=== PATIENT | male | born 1950 | race Caucasian/White ===

== ENCOUNTER 2020-09-17 08:23 | Observation (INO) ==
[2020-09-17] MEDS ORDERED: NS 0.9% 1000 ml BAG 1,000 ML IV ONE ×2 (08:24→08:35)
[2020-09-17 08:49] LABS: Hematocrit 31 % (42-52); Hemoglobin 10.7 g/dL (14.0-18.0); Mean Corpuscular HGB Conc 34 g/dL (31-36); Mean Corpuscular Hemoglobin 33 pg (27-31); Mean Corpuscular Volume 96 fL (80-94); Mean Platelet Volume 8.2 fL (7.4-10.4); Platelet Count 290 10^3/uL (150-450); Red Blood Count 3.25 10^6 /uL (4.18-5.48); Red Cell Distribution Width 17 % (10-15); White Blood Count 3.5 10^3/uL (3.5-10.8)
[2020-09-17] MEDS ORDERED: Ondansetron 4 mg VIAL 2 MG/ML 2 ml VIAL IV ONE (08:58)
[2020-09-17 09:08] LABS: Albumin 3.8 g/dL (3.2-5.2); Albumin/Globulin Ratio 1.4 (1-3); BUN/Creatinine Ratio 30.5 (8-20); Calcium 9.5 mg/dL (8.6-10.3); EGFR African American 113.1 (>60); EGFR Non-African American 93.4 (>60); Globulin 2.8 g/dL (2-4); Magnesium 1.8 mg/dL (1.9-2.7); Potassium 3.8 mmol/L (3.5-5.0); Total Bilirubin 1.5 mg/dL (0.2-1.0); Total Protein 6.6 g/dL (6.4-8.9)
[2020-09-17 09:10] LABS: Troponin I 0.01 ng/mL (<0.03)
[2020-09-17] MEDS ORDERED: Magnesium Sulfate IV 1GM/100ML 1 GM/100 ML BAG IV ONE (09:16)
[2020-09-17 09:27] LABS: ABS Lymphocytes 0.4 10^3/ul (1.0-4.8); ABS Monocytes 0.9 10^3/ul (0-0.8); ABS Neutrophils 2.2 10^3/ul (1.5-7.7); Eosinophil % 0.3 %; Lymphocyte % 11.9 %; Nucleated Red Blood Cells % 0.6
[2020-09-17 09:42] LABS: TSH Ultra Thyroid Stim Horm 0.82 mcIU/mL (0.34-5.60)
[2020-09-17] MEDS ORDERED: Ondansetron 4 mg VIAL 2 MG/ML 2 ml VIAL IV PRN (10:40)
[2020-09-17] MEDS ORDERED: Ondansetron ODT 4 mg TAB 4 MG TAB PO PRN (10:46)
[2020-09-17] MEDS: Enoxaparin 40 MG/0.4 ML SYR SUBCUT SCH (12:01)
[2020-09-17] MEDS: Aspirin EC 81 mg TAB.EC (enteric coated) PO SCH (12:01)
[2020-09-17] MEDS: NS 0.9% 1000 ml BAG 1,000 ML IV SCH ×2 (14:11→21:00)
[2020-09-18] MEDS: NS 0.9% 1000 ml BAG 1,000 ML IV SCH ×3 (03:18→20:03)
[2020-09-18 06:08] LABS: Hematocrit 20 % (42-52); Hemoglobin 7.1 g/dL (14.0-18.0); Mean Corpuscular HGB Conc 35 g/dL (31-36); Mean Corpuscular Hemoglobin 34 pg (27-31); Mean Corpuscular Volume 95 fL (80-94); Mean Platelet Volume 7.6 fL (7.4-10.4); Platelet Count 147 10^3/uL (150-450); Red Blood Count 2.12 10^6 /uL (4.18-5.48); Red Cell Distribution Width 17 % (10-15); White Blood Count 1.3 10^3/uL (3.5-10.8)
[2020-09-18 06:27] LABS: BUN/Creatinine Ratio 30.8 (8-20); Calcium 7.7 mg/dL (8.6-10.3); EGFR African American 191.2 (>60); Potassium 3.6 mmol/L (3.5-5.0)
[2020-09-18] MEDS: Enoxaparin 40 MG/0.4 ML SYR SUBCUT SCH (09:34)
[2020-09-18] MEDS: Aspirin EC 81 mg TAB.EC (enteric coated) PO SCH (09:34)
[2020-09-18 09:37] LABS: Polychromasia 2+
[2020-09-18 09:38] LABS: Spherocytes 2+
[2020-09-18 09:39] LABS: ABS Lymphocytes 0.2 10^3/ul (1.0-4.8); ABS Monocytes 0.3 10^3/ul (0-0.8); Eosinophil % 0.5 %; Nucleated Red Blood Cells % 0.1
[2020-09-18 09:41] LABS: ABS Neutrophils 0.7 10^3/ul (1.5-7.7)
[2020-09-18 10:04] LABS: Hematocrit 22 % (42-52); Hemoglobin 7.6 g/dL (14.0-18.0); Mean Corpuscular HGB Conc 35 g/dL (31-36); Mean Corpuscular Hemoglobin 34 pg (27-31); Mean Corpuscular Volume 96 fL (80-94); Mean Platelet Volume 7.7 fL (7.4-10.4); Platelet Count 161 10^3/uL (150-450); Red Blood Count 2.24 10^6 /uL (4.18-5.48); Red Cell Distribution Width 17 % (10-15); White Blood Count 1.6 10^3/uL (3.5-10.8)
[2020-09-18 12:12] LABS: ABS Lymphocytes 0.2 10^3/ul (1.0-4.8); ABS Monocytes 0.4 10^3/ul (0-0.8); Eosinophil % 0.3 %; Lymphocyte % 11.7 %; Nucleated Red Blood Cells % 0.4
[2020-09-18 12:51] LABS: Urine Appearance Clear; Urine Bilirubin Negative (Negative); Urine Blood 1+ (Negative); Urine Color Yellow; Urine Glucose Negative (Negative); Urine Ketones 2+ (Negative); Urine Nitrite Negative (Negative); Urine Protein Negative (Negative); Urine Urobilinogen Positive (Negative)
[2020-09-18 13:06] LABS: Urine Bacteria Absent (Absent); Urine Red Blood Cell Trace(0-2/hpf) (Absent); Urine Squamous Epithelial Cell Present (Absent); Urine White Blood Cell Trace(0-5/hpf) (Absent)
[2020-09-19] MEDS: NS 0.9% 1000 ml BAG 1,000 ML IV SCH (04:04)
[2020-09-19] MEDS: Aspirin EC 81 mg TAB.EC (enteric coated) PO SCH (07:43)
[2020-09-19 08:08] VITALS: BP 121/63
== END 2020-09-19 11:35 | disposition home or self-care (01) ==
LOC: MED 08:23 → ED 08:23 → MED 13:19
PROVIDERS: ADMIT Internal Medicine Hematology & Oncology; ATTEND Internal Medicine Hematology & Oncology

== ENCOUNTER 2024-05-30 12:27 | Observation (INO) ==
[2024-05-30] MEDS: Lactated Ringers 1000 ml BAG 1,000 ML IV ONE (13:43)
[2024-05-30 13:52] LABS: ABS Basophils 0.1 10^3/uL (0.0-0.1); ABS Lymphocytes 0.6 10^3/uL (1.0-4.8); ABS Monocytes 0.3 10^3/uL (0.0-1.1); ABS Neutrophils 6.7 10^3/uL (1.5-7.6); Eosinophil % 0.4 %; Hematocrit 29.3 % (38-53); Hemoglobin 10.2 g/dL (13.2-16.3); Lymphocyte % 7.6 %; Mean Corpuscular Hemoglobin 31.8 pg (27-33); Mean Corpuscular Hgb Conc 34.7 g/dL (31-36); Mean Corpuscular Volume 91.7 fL (80-97); Mean Platelet Volume 7.8 fL (7.5-11.2); Platelet Count 405 10^3/uL (150-450); Red Cell Distribution Width 14.1 % (12-17); White Blood Count 7.8 10^3/uL (3.6-10.2)
[2024-05-30 14:52] LABS: Albumin 2.4 g/dL (3.5-5.7); Albumin/Globulin Ratio 0.9 (1-3); Calcium 7.6 mg/dL (8.6-10.3); Creatinine, Serum 0.68 mg/dL (0.67-1.17); Globulin 2.8 g/dL (2-4); Potassium 4.3 mmol/L (3.5-5.0); Total Bilirubin 1.1 mg/dL (0.2-1.0); Total Protein 5.2 g/dL (6.4-8.9); eGFR CKD-EPI 99.4 (>60)
[2024-05-30] MEDS: Enoxaparin 40 MG/0.4 ML SYR SUBCUT SCH (17:45)
[2024-05-31] MEDS: CMC:Simvastatin 20 mg TAB (NF) PO SCH (09:59)
[2024-05-31] MEDS: Citalopram SOLN ORALSYR 2 MG/ML G TUBE SCH (09:59)
[2024-06-01 09:37] LABS: Albumin 2.3 g/dL (3.5-5.7); Albumin/Globulin Ratio 0.9 (1-3); Calcium 7.2 mg/dL (8.6-10.3); Creatinine, Serum 0.53 mg/dL (0.67-1.17); Globulin 2.7 g/dL (2-4); Magnesium 1.9 mg/dL (1.9-2.7); Phosphorus 3.1 mg/dL (2.5-5.0); Potassium 4.3 mmol/L (3.5-5.0); Total Bilirubin 0.6 mg/dL (0.2-1.0); eGFR CKD-EPI 107.1 (>60)
[2024-06-02 09:39] VITALS: BP 117/66
== END 2024-06-02 13:00 | disposition home or self-care (01) ==
LOC: ED 12:27 → EDHOLD 12:27 → SUATTDRO 17:20 → MEDTELE 18:12
PROVIDERS: ADMIT Student in an Organized Health Care Education/Training Program; ATTEND Student in an Organized Health Care Education/Training Program